=== PATIENT | female | born 1990 | race Caucasian/White ===

== ENCOUNTER 2019-12-10 16:07 | Emergency (ER) | payer OTHER, SELFPAY ==
--- NOTE | ~2019-12-10 | US_ITS ---
US pelvic complete w TV DATE: 12/10/2019 17:08 INDICATION: Pelvic pain, heavy vaginal bleeding TECHNIQUE: Real-time imaging via transabdominal and transvaginal approaches COMPARISON: None FINDINGS: The uterus measures 7.5 cm height, 4.3 cm anteroposterior dimension. The central endometria l echo complex measures approximately 6 mm anteroposterior dimension. The right ovary measures 2.7 x 1.9 x 1.4 cm. The left ovary measures 1.6 x 2 x 1.5 cm. There is vascu lar flow to both ovaries. No pelvic mass lesion or abnormal pelvic fluid collection is detected. IMPRESSION: Unremarkable examination Reviewed, dictated and finalized at [facility]. Reviewed, dictated and finalized at [facility]. IMPRESSION: Unremarkable examination
[2019-12-10 16:18] VITALS: BP 138/95; PULSE 108; RESP 18; TEMP 37.2; O2SAT 98
[2019-12-10] MEDS: SODIUM CHLORIDE 0.9% IV 1,000 ML 999 ML IV CONT (17:19)
[2019-12-10 17:34] LABS: Basophils Percent Auto 0.6 % (0.2-1.2); Eosinophils Absolute Auto 0.2 K/mm3 (0-0.3); Eosinophils Percent Auto 2.7 % (0-4.4); Hematocrit 41.4 % (37.0-47.0); Hemoglobin 14.3 g/dL (12.0-15.0); Immature Granulocyte Absolute 0.01 K/mm3 (0.00-0.031); Immature Granulocyte Percent A 0.2 % (0-0.5); Lymphocytes Absolute Auto 1.54 K/mm3 (0.9-3.2); Lymphocytes Percent Auto 23.5 % (18.3-44.2); Mean Corpuscular HGB Conc 34.5 g/dl (32-36); Mean Corpuscular Hemoglobin 30.6 pg (26-34); Mean Corpuscular Volume 88.7 fl (80-100); Mean Platelet Volume 11.4 fl (7.4-10.4); Monocytes Absolute Auto 0.7 K/mm3 (0.1-0.6); Monocytes Percent Auto 10.1 % (2.6-8.5); Neutrophils Absolute Auto 4.1 K/mm3 (1.3-6.7); Neutrophils Percent Auto 62.9 % (45.5-73.1); Platelet Count Result 168 k/mm3 (150-375); Red Blood Count 4.67 M/mm3 (4.2-5.4); Red Cell Distribution Width 12.4 % (11.5-14.5); White Blood Count 6.6 K/mm3 (4.5-10.0)
[2019-12-10 17:39] LABS: Add Urine Microscopic? YES; Amorphous Sediment Urine Few; Appearance Urine Cloudy (Clear); Bacteria Urine Trace /hpf; Bilirubin Urine Negative (Negative); Blood Urine 2+ (Negative); Color Urine Yellow (Yellow); Glucose Urine UA Negative (Negative); Ketones Urine Negative (Negative); Leukocyte Esterase Ur Negative LEU/UL (Negative); Mucus Urine Rare /lpf; Nitrate Urine Negative (Negative); Protein Urine Negative (Negative); Specific Grav Ur 1.023 (1.001-1.035); Squamous Epithelial Cell Urine Occasional /hpf (Few); WBC Urine 0-3 /hpf
[2019-12-10 17:50] LABS: Blood Urea Nitrogen 22 mg/dL (7-17); Calcium 9.1 mg/dL (8.4-10.2); Carbon Dioxide 24 mmol/L (22-30); Chloride 106 mmol/L (98-107); Estimated CRCL calculation 102 ml/min; Estimated Glomerular Filt Rate > 60; Glucose 89 mg/dL (65-105); Sodium 137 mmol/L (137-145)
--- NOTE | 2019-12-10 18:00 | ED.ABDPAIN ---
HPI - Abdominal Pain General Chief Complaint: Vaginal Bleeding <AUBRIE Dewitt Last Filed: 12/10/19 18:23> Stated Complaint: vag bleeding <AUBRIE Dewitt Last Filed: 12/10/19 18:23> Time Seen by Provider: 12/10/19 16:39 <AUBRIE Dewitt Last Filed: 12/10/19 18:23> Source: patient <AUBRIE Dewitt Last Filed: 12/10/19 18:23> Mode of arrival: ambulatory <AUBRIE Dewitt Last Filed: 12/10/19 18:23> Limitations: no limitations <AUBRIE Dewitt Last Filed: 12/10/19 18:23> History of Present Illness HPI narrative: Patient is a 29-year-old female who presents with several days duration of breakthrough vaginal bleeding noting that she had had a menses and then had a recurrence of bleeding. Patient notes some cramping in the lower pelvic region patient has not seen her primary care for this. Patient recently started an antidepressant and was not sure is whether or not this may have been the cause patient denies any fever chills nausea vomiting. <AUBRIE Dewitt Last Filed: 12/10/19 18:23> Related Data Home Medications: Home Medications Medication Instructions Recorded Confirmed escitalopram oxalate mg 12/10/19 <AUBRIE Dewitt Last Filed: 12/10/19 18:23> Allergies/Adverse Reactions: Allergies Allergy/AdvReac Type Severity Reaction Status Date / Time latex Allergy Unknown Unknown Verified 12/10/19 16:26 <AUBRIE Dewitt Last Filed: 12/10/19 18:23> Review of Systems Review of Systems: All systems reviewed & are unremarkable except as noted in HPI and below <AUBRIE Dewitt Last Filed: 12/10/19 18:23> Exam Narrative: Exam Narrative: GENERAL: Well-appearing, well-nourished, and in no acute distress. HEAD: Normocephalic, atraumatic. EYES: PERRLA and EOMI. ENT: Nares clear, no rhinorrhea or epistaxis. Mucous membranes moist. CHEST: Clear to auscultation. No respiratory distress. No wheezes rales or rhonchi HEART: Regular rate and rhythm. No murmur heard. Normal peripheral pulses. ABDOMEN: Soft, right adnexal tenderness, nondistended EXTREMITIES: Normal range of motion. No edema. SKIN: Warm, dry, no rash. NEURO: No focal deficits. Alert and oriented x3. Cranial nerves II through XII grossly intact PSYCH: Normal mood and affect. <AUBRIE Dewitt Last Filed: 12/10/19 18:23> Course Course Emergency Course: Patient in the room in no distress aware of case findings treatment plan and diagnosis <Percy Curran PA-C - Last Filed: 12/10/19 18:23> Vital Signs Vital signs: Vital Signs Temperature 99.0 F 12/10/19 16:18 Pulse Rate 108 H 12/10/19 16:18 Respiratory Rate 18 12/10/19 16:18 Blood Pressure 138/95 H 12/10/19 16:18 Pulse Oximetry 98 12/10/19 16:18 Temperature 99.0 F 12/10/19 16:18 Pulse Rate 66 12/10/19 18:39 Respiratory Rate 17 12/10/19 18:39 Blood Pressure 110/70 12/10/19 18:39 Pulse Oximetry 100 12/10/19 18:39 <Percy Curran PA-C - Last Filed: 12/10/19 18:23> Vital Signs Temperature 99.0 F 12/10/19 16:18 Pulse Rate 108 H 12/10/19 16:18 Respiratory Rate 18 12/10/19 16:18 Blood Pressure 138/95 H 12/10/19 16:18 Pulse Oximetry 98 12/10/19 16:18 Temperature 99.0 F 12/10/19 16:18 Pulse Rate 66 12/10/19 18:39 Respiratory Rate 17 12/10/19 18:39 Blood Pressure 110/70 12/10/19 18:39 Pulse Oximetry 100 12/10/19 18:39 <Margarita Sánchez MD - Last Filed: 12/10/19 20:11> MDM - Abdominal Pain MDM Narrative Medical decision making narrative: Patient in the room in no distress aware of case findings treatment plan and diagnosis agreeing to follow-up as directed provided with reasons to return hemodynamically stable no high risk changes in the blood work or imaging <AUBRIE Dewitt Last Filed: 12/10/19 18:23> Lab Data Result diagrams: : 12/09/
[2019-12-10 18:39] VITALS: BP 110/70; PULSE 66; RESP 17; O2SAT 100
== END 2019-12-10 18:42 | disposition home or self-care (01) ==
PROVIDERS: Emergency Medicine Emergency Medical Services; Emergency Provider Emergency Medicine
DX: N93.9 Abnormal uterine and vaginal bleeding, unspecified (principal)
CPT/HCPCS: 36415; 76830; 76856; 80048; 81001; 85025; 96361; 96365; 99284; J0131; J7030

== ENCOUNTER 2020-02-15 19:04 | Emergency (ER) | payer OTHER, SELFPAY ==
--- NOTE | ~2020-02-15 | CT_ITS ---
EXAMINATION: CT abdomen pelvis w con DATE: 02/15/2020 20:58 INDICATION: Right groin pain and swelling. TECHNIQUE: Computed tomography (CT) of the abdomen and pelvis was performed with 100 mL Omnipaque 350 intravenous contrast. Automated exposure control and iterative reconstruction technique were employe d. The dose-length product was 422.37 mGy-cm. COMPARISON: None. FINDINGS: The visualized portions of the lung bases are clear without pneumonia or pleural effusion. The heart size is normal. No pericardial effusion. The liver, gallbladder, spleen, pancreas, adrenal glands, and kidneys are normal. There are no dilated loops of bowel. The appendix is normal. There ar e no pathologically enlarged lymph nodes. There is trace pelvic ascites. There are small bilateral in guinal hernias containing fat. The bones are unremarkable. IMPRESSION: 1. Small bilateral inguinal hernias containing fat. Reviewed, dictated and finalized at location [facility].
[2020-02-15 19:11] VITALS: BP 112/75; PULSE 87; RESP 20; TEMP 36.4; O2SAT 98
--- NOTE | 2020-02-15 19:26 | ED.GENADULT ---
HPI - General Adult General Chief complaint: Unspecified Stated complaint: swollen lymph nodes in the groin Time Seen by Provider: 02/15/20 19:18 History of Present Illness HPI narrative: Swelling to the right inguinal region for several days. Believes it is a lymph node. It is very painful. She is able to push it back in . She was seen at [facility] yesterday and diagnosed with candidal vulvovaginitis. She does not believe that this is correct. She says that she looked it up and she has a hernia. Related Data Home Medications Medication Instructions Recorded Confirmed escitalopram oxalate mg 12/10/19 Allergies Allergy/AdvReac Type Severity Reaction Status Date / Time latex Allergy Unknown Unknown Verified 12/10/19 16:26 Review of Systems Review of Systems: All systems reviewed & are unremarkable except as noted in HPI and below Constitutional: Constitutional: Denies fever(s) Cardiovascular: Cardiovascular: Denies chest pain Respiratory: Respiratory: Denies dyspnea Gastrointestinal: Gastrointestinal: Reports abdominal pain, Denies constipation, Denies diarrhea and Denies vomiting Genitourinary: Genitourinary: Denies hematuria and Reports vaginal discharge Integumentary/Breasts: Skin/Breast: Denies rash Neurologic: Denies dizziness and Denies weakness Exam Const: General: no acute distress and alert Orientation/consciousness: patient oriented x3 HENMT: Head: normal to inspection Resp: Effort & Inspection: normal respiratory effort Auscultation: clear to auscultation bilaterally Cardio: Rate: regular rate Rhythm: regular rhythm GI: Inspection: non-distended GI Palp: Yes Soft to palpation and Yes Tenderness to palpation present (GI) (right pubis with mild bulging upon standing) : External Female Exam: normal external appearance Speculum Exam - Vagina: normal vaginal discharge and vaginal bleeding Other: Mild cervical scarring Skin: General skin exam: normal color Neuro: General: patient oriented x3, moves all extremities and no focal motor deficits Speech: normal speech Extrem: General: normal to inspection Course Vital Signs Vital signs: Vital Signs Temperature 36.4 C 02/15/20 19:11 Pulse Rate 87 02/15/20 19:11 Respiratory Rate 20 02/15/20 19:11 Blood Pressure 112/75 02/15/20 19:11 Pulse Oximetry 98 02/15/20 19:11 Temperature 36.4 C 02/15/20 19:11 Pulse Rate 83 02/15/20 22:40 Respiratory Rate 16 02/15/20 22:40 Blood Pressure 119/68 02/15/20 22:40 Pulse Oximetry 99 02/15/20 22:40 Medical Decision Making Medical Records Medical records reviewed: Yes I reviewed the patient's medical records. Vital Signs Vital Signs: Vital Signs Temperature 36.4 C 02/15/20 19:11 Pulse Rate 87 02/15/20 19:11 Respiratory Rate 20 02/15/20 19:11 Blood Pressure 112/75 02/15/20 19:11 Pulse Oximetry 98 02/15/20 19:11 Temperature 36.4 C 02/15/20 19:11 Pulse Rate 83 02/15/20 22:40 Respiratory Rate 16 02/15/20 22:40 Blood Pressure 119/68 02/15/20 22:40 Pulse Oximetry 99 02/15/20 22:40 Lab Data Lab results reviewed: Yes I reviewed the patient's lab results. Result diagrams: 02/15/20 20:23 02/15/20 20:23 Labs: Lab Results 02/15/20 02/15/20 02/15/20 Range/Units 20:23 20:23 20:23 WBC 8.8 (4.5-10.0) K/mm3 RBC 4.58 (4.2-5.4) M/mm3 Hgb 13.9 (12.0-15.0) g/dL Hct 41.3 (37.0-47.0) % MCV 90.2 (80-100) fl MCH 30.3 (26-34) pg MCHC 33.7 (32-36) g/dl RDW 12.9 (11.5-14.5) % Plt Count 184 (150-375) k/mm3 MPV 11.2 H (7.4-10.4) fl Immature Gran % (Auto) 0.3 (0-0.5) % Neut % (Auto) 68.4 (45.5-73.1) % Lymph % (Auto) 19.7 (18.3-44.2) % [place] % (Auto) 8.3 (2.6-8.5) % Eos % (Auto) 2.7 (0-4.4) % Baso % (Auto) 0.6 (0.2-1.2) % Lymph # (Auto) 1.73 (0.9-3.2) K/mm3 [place] # (Auto) 0.7 H (0.1-0.6) K/mm3 Eos # (Auto) 0.2 (0
[2020-02-15] MEDS: KETOROLAC 30 MG/ML VIAL (*BKC) IV PUSH (20:13)
--- NOTE | 2020-02-15 20:16 | PC.NURSE ---
pt ambulating to bathroom to give sample at this time.
[2020-02-15 20:31] LABS: Basophils Absolute Auto 0.1 K/mm3 (0.0-0.1); Basophils Percent Auto 0.6 % (0.2-1.2); Eosinophils Absolute Auto 0.2 K/mm3 (0-0.3); Eosinophils Percent Auto 2.7 % (0-4.4); Hematocrit 41.3 % (37.0-47.0); Hemoglobin 13.9 g/dL (12.0-15.0); Immature Granulocyte Absolute 0.03 K/mm3 (0.00-0.031); Immature Granulocyte Percent A 0.3 % (0-0.5); Lymphocytes Absolute Auto 1.73 K/mm3 (0.9-3.2); Lymphocytes Percent Auto 19.7 % (18.3-44.2); Mean Corpuscular HGB Conc 33.7 g/dl (32-36); Mean Corpuscular Hemoglobin 30.3 pg (26-34); Mean Corpuscular Volume 90.2 fl (80-100); Mean Platelet Volume 11.2 fl (7.4-10.4); Monocytes Absolute Auto 0.7 K/mm3 (0.1-0.6); Monocytes Percent Auto 8.3 % (2.6-8.5); Neutrophils Percent Auto 68.4 % (45.5-73.1); Platelet Count Result 184 k/mm3 (150-375); Red Blood Count 4.58 M/mm3 (4.2-5.4); Red Cell Distribution Width 12.9 % (11.5-14.5); White Blood Count 8.8 K/mm3 (4.5-10.0)
[2020-02-15 20:37] LABS: Add Urine Microscopic? YES; Appearance Urine Clear (Clear); Bilirubin Urine Negative (Negative); Blood Urine 3+ (Negative); Color Urine Yellow (Yellow); Glucose Urine UA Negative (Negative); Ketones Urine Negative (Negative); Leukocyte Esterase Ur Negative LEU/UL (Negative); Mucus Urine Rare /lpf; Nitrate Urine Negative (Negative); Protein Urine Negative (Negative); RBC Urine 21-50 /hpf (0-2); Specific Grav Ur 1.025 (1.001-1.035); Squamous Epithelial Cell Urine Occasional /hpf (Few); WBC Urine 0-3 /hpf
[2020-02-15 20:42] LABS: Alanine Aminotransferase 10 U/L (4-35); Albumin Level 4.5 g/dL (3.5-5.1); Alkaline Phosphatase 53 U/L (38-126); Anion Gap 7 mmol/L (8-16); Aspartate Amino Transferase 19 U/L (14-36); Blood Urea Nitrogen 18 mg/dL (7-17); Calcium 9.1 mg/dL (8.4-10.2); Carbon Dioxide 27 mmol/L (22-30); Chloride 102 mmol/L (98-107); Estimated CRCL calculation 89 ml/min; Estimated Glomerular Filt Rate > 60; Glucose 95 mg/dL (65-105); Potassium 3.6 mmol/L (3.4-5.0); Sodium 136 mmol/L (137-145)
[2020-02-15 21:06] VITALS: BP 129/77; PULSE 80; RESP 19; O2SAT 99
[2020-02-15 22:40] VITALS: BP 119/68; PULSE 83; RESP 16; O2SAT 99
== END 2020-02-15 22:42 | disposition home or self-care (01) ==
PROVIDERS: Emergency Provider Emergency Medicine
DX: K40.20 Bilateral inguinal hernia, without obstruction or gangrene, not specified as recurrent (principal)
CPT/HCPCS: 36415; 74177; 80053; 81001; 81025; 85025; 96374; 99284; J1885; Q9967

== ENCOUNTER 2020-02-26 10:06 | Outpatient (CLI) | payer OTHER, SELFPAY | END 2020-02-26 10:07 | disposition home or self-care (01) | PROVIDERS: PCP Physician Assistant; Visit Provider Surgery | DX: Z01.818 Encounter for other preprocedural examination (principal); K40.20 Bilateral inguinal hernia, without obstruction or gangrene, not specified as recurrent | CPT/HCPCS: 36415; 86850; 86900; 86901 ==

== ENCOUNTER 2020-11-13 23:43 | Emergency (ER) | payer OTHER, SELFPAY ==
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
--- NOTE | 2020-11-14 00:05 | PC.NURSE ---
walked out PRIOR to triage.
== END 2020-11-14 00:11 | disposition left against medical advice (07) ==
PROVIDERS: PCP Physician Assistant
DX: Z53.21 Procedure and treatment not carried out due to patient leaving prior to being seen by health care provider (principal)
CPT/HCPCS: 99199

== ENCOUNTER 2020-12-31 23:29 | Emergency (ER) | payer OTHER, SELFPAY ==
--- NOTE | ~2020-12-31 | XR_ITS ---
EXAMINATION: XR tibia fibula RT 2V INDICATION: Right leg pain TECHNIQUE: Two views of the right tibia and fibula are obtained. COMPARISON: None available FINDINGS: There is no fracture, dislocation, or subluxation. The bones, soft tissues, and joint space s are normal. IMPRESSION: 1. No acute osseous abnormality. Reviewed, dictated and finalized at location [facility].
--- NOTE | ~2020-12-31 | XR_ITS ---
EXAMINATION: XR knee RT min 4V DATE: 01/01/2021 00:01 INDICATION: Right knee pain TECHNIQUE: Four views of the right knee were obtained. COMPARISON: None. FINDINGS: Alignment is normal. No fracture or osteochondral lesion. Joint spaces are normal with no e rosions. No joint effusion/synovitis. Soft tissues are unremarkable. IMPRESSION: 1. No acute osseous abnormality. Reviewed, dictated and finalized at location [facility].
[2020-12-31 23:32] VITALS: BP 111/68; PULSE 86; RESP 18; TEMP 37.1; O2SAT 98
--- NOTE | 2020-12-31 23:48 | PC.NURSE ---
Pt to XY at this time.
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
== END 2021-01-01 01:20 | disposition home or self-care (01) ==
PROVIDERS: Emergency Provider Nurse Practitioner; PCP Physician Assistant
DX: M25.561 Pain in right knee (principal); M79.661 Pain in right lower leg; J45.909 Unspecified asthma, uncomplicated; E03.9 Hypothyroidism, unspecified; F32.9 Major depressive disorder, single episode, unspecified; F17.210 Nicotine dependence, cigarettes, uncomplicated; W23.1XXA Caught, crushed, jammed, or pinched between stationary objects, initial encounter
CPT/HCPCS: 73564; 73590; 99284

== ENCOUNTER 2023-09-24 00:19 | Observation (INO) | payer OTHER, SELFPAY ==
[2023-09-24] VITALS (14 sets, daily range): BP systolic 107–123; BP diastolic 65–83; PULSE 95–122; O2SAT 97–100
[2023-09-24 01:57] LABS: Appearance Urine Clear (Clear); Bacteria Urine 1+ /hpf; Bilirubin Urine Negative (Negative); Blood Urine Negative (Negative); Color Urine Yellow (Yellow); Glucose Urine UA Negative (Negative); Ketones Urine 2+ mg/dL (Negative); Leukocyte Esterase Ur 1+ LEU/UL (Negative); Nitrate Urine Negative (Negative); Non Pathogenic Casts 0-2; Protein Urine Trace mg/dL (Negative); RBC Urine 0-2 /hpf (0-2); Specific Grav Ur 1.026 (1.001-1.035); Squamous Epithelial Cell Urine Occasional /hpf (Few)
[2023-09-24 01:58] LABS: Add Urine Microscopic? YES
[2023-09-24 02:08] LABS: Amphetamine Screen Urine Negative (Negative); Barbiturate Screen Urine Negative (Negative); Benzodiazepines Screen Urine Negative (Negative); Cannabinoid Screen Urine Negative (Negative); Cocaine Screen Urine Negative (Negative); Methadone Screen Urine Negative (Negative); Opiate Screen Urine Negative (Negative); Phencyclidine Screen Urine Negative (Negative)
[2023-09-24] MEDS: TERBUTALINE SULFATE 1 MG/ML VIAL 0.25 MG SUB-Q (02:19)
--- NOTE | 2023-09-24 03:07 | OBADM ---
This patient, Marita High, admitted to the OB room [facility] for observation. Patient/family oriented to hospital policies and general routines including ID bracelet, bed and alarms, visiting hours, pain management, procedures, bathroom and other care routines, personal items, smoking policy, room service/diet, and visiting hours. Patient/Family are encouraged to report perceived risks to care and to ask questions if they do not understand what they are told or what they should do.
--- NOTE | 2023-09-25 10:24 | PM.OBTRLD ---
OB - Triage/Final Diagnosis Visit Information Reason for evaluation: threatened labor Comments/Additional reasons for admission: I have assessed the risk for this patient, Marita High, and determined that she would benefit from observation care. Evaluation Laboratory results: Laboratory Tests 09/24/23 01:44 Urine Color Yellow Urine Appearance Clear Urine pH 6.0 Ur Specific [place] 1.026 Urine Protein Trace Urine Glucose (UA) Negative Urine Ketones 2+ H Ur Blood (Man) Negative Urine Nitrate Negative Urine Bilirubin Negative Urine Urobilinogen 1.0 Leukocyte Esterase Rfl 1+ H Urine RBC 0-2 Urine WBC 11-20 H Ur Squamous Epith Cells Occasional Urine Bacteria 1+ H Urine Casts 0-2 Urine Opiates Screen Negative Urine Methadone Screen Negative Ur Barbiturates Screen Negative Ur Phencyclidine Scrn Negative Ur Amphetamine Screen Negative U Benzodiazepines Scrn Negative Urine Cocaine Screen Negative U Cannabinoids Screen Negative
== END 2023-09-24 03:29 | disposition home or self-care (01) ==
PROVIDERS: Admitting Provider Obstetrics & Gynecology; PCP Physician Assistant; Visit Provider Obstetrics & Gynecology
DX: O47.03 False labor before 37 completed weeks of gestation, third trimester (principal); Z3A.33 33 weeks gestation of pregnancy
CPT/HCPCS: 80307; 81001; 87086; 96372; G0378; G0379; J3105